=== PATIENT | male | born 1960 | race African-American/Black ===

== ENCOUNTER 2018-09-06 08:52 | Inpatient (IN) | payer MEDICARE, MEDICAID ==
[~2018-09-06 08:52] MED LIST: CEFAZOLIN 1 GM/D5W RTU 1 GM/50 ML RTUPB IV ONE
--- NOTE | 2018-09-06 09:35 | RADIOLOGY REPORT (SQ) ---
EXAM DESCRIPTION: CHEST SINGLE VIEW COMPLETED DATE/TIME: 09/06/2018 9:18 am REASON FOR STUDY: PREOP COMPARISON: AP chest 06/12/2017 EXAM PARAMETERS: NUMBER OF VIEWS: One view. TECHNIQUE: Single frontal radiographic view of the chest acquired. RADIATION DOSE: NA LIMITATIONS: None. FINDINGS: LUNGS AND PLEURA: No opacities, masses or pneumothorax. No pleural effusion. MEDIASTINUM AND HILAR STRUCTURES: No masses. Contour normal. HEART AND VASCULAR STRUCTURES: Heart normal in size. Normal vasculature. BONES: No acute findings. HARDWARE: None in the chest. OTHER: No other significant finding. IMPRESSION: NO ACUTE RADIOGRAPHIC FINDING IN THE CHEST. TECHNICAL DOCUMENTATION: JOB ID: [id number] [employer]- All Rights Reserved Reading location - IP/workstation name: [email or web address]
[2018-09-06 09:38] LABS: HEMATOCRIT 31.4 % (37.9-51.0); HEMOGLOBIN 10.5 g/dL (13.5-17.0); MEAN CORPUSCULAR HEMOGLOBIN 24.6 pg (27.0-33.4); MEAN CORPUSCULAR HGB CONC 33.4 g/dL (32.0-36.0); MEAN CORPUSCULAR VOLUME 74 fl (80-97); PLATELET COUNT 408 10^3/uL (150-450); RED BLOOD COUNT 4.26 10^6/uL (4.35-5.55); WHITE BLOOD COUNT 9.6 10^3/uL (4.0-10.5)
[2018-09-06] MEDS ORDERED: ALBUTEROL SULFATE 0.083% NEB 2.5 MG/3 ML AMPUL NEB ONE (09:42)
[2018-09-06 09:53] LABS: INTERNATIONAL RATION (INR) 1.25; PROTHROMBIN TIME 15.7 SEC (11.4-15.4)
[2018-09-06 09:54] LABS: PARTIAL THROMBOPLASTIN TIME 27.6 SEC (23.5-35.8)
[2018-09-06] MEDS ORDERED: LIDOCAINE 0.5% INJ-PF (5 MG/ML) 50 ML SDV ONE (09:56)
[2018-09-06] MEDS ORDERED: BUPIVACAINE HCL 0.25 % INJ/PF (2.5 MG/1 ML) 30 ML VIAL ONE (09:56)
[2018-09-06] MEDS ORDERED: BACITRACIN INJ 50,000 UNIT VIAL ONE (09:57)
[2018-09-06 09:58] LABS: ANION GAP 10 (5-19); BLOOD UREA NITROGEN 21 mg/dL (7-20); CALCIUM 9.2 mg/dL (8.4-10.2); CARBON DIOXIDE 26 mmol/L (22-30); CHLORIDE 107 mmol/L (98-107); GLUCOSE 86 mg/dL (75-110); POTASSIUM 4.5 mmol/L (3.6-5.0); SODIUM 142.6 mmol/L (137-145)
[2018-09-06] MEDS ORDERED: FENTANYL CITRATE INJ/PF 100 MCG/2 ML AMPUL ONE (10:11)
[2018-09-06] MEDS ORDERED: MIDAZOLAM 2 MG/2 ML INJ ONE (10:12)
[2018-09-06] MEDS ORDERED: PROPOFOL INJ 200 MG/20 ML VIAL IV ONE (10:12)
[2018-09-06] MEDS ORDERED: OXYCODONE-ACETAMINOPHEN 5-325 MG TABLET PO PRN ×2 (11:14)
[2018-09-06] MEDS ORDERED: PROMETHAZINE HCL INJ 25 MG/1 ML VIAL IV PRN ×2 (11:14)
[2018-09-06] MEDS ORDERED: DIPHENHYDRAMINE HCL 50 MG/ML VIAL IV PRN (11:14)
[2018-09-06] MEDS ORDERED: MEPERIDINE HCL/PF INJ 25 MG/1 ML DISP.SYRIN IV PRN (11:14)
[2018-09-06] MEDS ORDERED: FENTANYL CITRATE INJ/PF 100 MCG/2 ML AMPUL IV PRN ×3 (11:14)
--- NOTE | 2018-09-06 14:11 | RADIOLOGY REPORT (SQ) ---
EXAM DESCRIPTION: KNEE RIGHT 2 VIEWS; NO CHG FLUORO COMPLETED DATE/TIME: 09/06/2018 1:46 pm REASON FOR STUDY: FOREIGN BODY / MISSING NEEDLE S/P RT BELOW KNEE AMPUTATION IN OR E11.621 TYPE 2 D IABETES MELLITUS WITH FOOT ULCER COMPARISON: None. FLUOROSCOPY TIME: 0.8 minutes 9 digital radiographic C-arm images saved to PACS. TECHNIQUE: Intra-operative images acquired during surgical procedure to evaluate progress. NUMBER OF IMAGES: 9 digital radiographic C-arm images LIMITATIONS: None. FINDINGS: Fluoroscopic imaging during below the knee amputation. Images demonstrate surgical staple s over the distal right lower leg amputation stump. No retained radiopaque foreign body over the field of view on the fluoroscopic images. There is a pl jose francisco cast over the distal right lower leg. Please see the operative report for further details IMPRESSION: Intra procedural imaging and fluoro COMMENT: Quality ID [id number]: Final reports for procedures using fluoroscopy that document radiation exp osure indices, or exposure time and number of fluorographic images (if radiation exposure indices are not available) Please consult full operative report of the attending physician for description of the procedure. TECHNICAL DOCUMENTATION: JOB ID: [id number] [employer]- All Rights Reserved Reading location - IP/workstation name: [email or web address]
--- NOTE | 2018-09-06 14:11 | RADIOLOGY REPORT (SQ) ---
EXAM DESCRIPTION: KNEE RIGHT 2 VIEWS; NO CHG FLUORO COMPLETED DATE/TIME: 09/06/2018 1:46 pm REASON FOR STUDY: FOREIGN BODY / MISSING NEEDLE S/P RT BELOW KNEE AMPUTATION IN OR E11.621 TYPE 2 D IABETES MELLITUS WITH FOOT ULCER COMPARISON: None. FLUOROSCOPY TIME: 0.8 minutes 9 digital radiographic C-arm images saved to PACS. TECHNIQUE: Intra-operative images acquired during surgical procedure to evaluate progress. NUMBER OF IMAGES: 9 digital radiographic C-arm images LIMITATIONS: None. FINDINGS: Fluoroscopic imaging during below the knee amputation. Images demonstrate surgical staple s over the distal right lower leg amputation stump. No retained radiopaque foreign body over the field of view on the fluoroscopic images. There is a pl jose francisco cast over the distal right lower leg. Please see the operative report for further details IMPRESSION: Intra procedural imaging and fluoro COMMENT: Quality ID [id number]: Final reports for procedures using fluoroscopy that document radiation exp osure indices, or exposure time and number of fluorographic images (if radiation exposure indices are not available) Please consult full operative report of the attending physician for description of the procedure. TECHNICAL DOCUMENTATION: JOB ID: [id number] [employer]- All Rights Reserved Reading location - IP/workstation name: [email or web address]
[2018-09-06] MEDS ORDERED: DEXTROSE 40% GEL 15 GM TUBE PO PRN ×2 (14:30→15:30)
[2018-09-06] MEDS ORDERED: DEXTROSE 40% GEL 15 GM TUBE X 2 PO PRN ×2 (14:30→15:30)
[2018-09-06] MEDS ORDERED: DEXTROSE 50%-WATER SYRINGE 25 GM/50 ML DOSE IV PRN ×2 (14:30→15:30)
[2018-09-06] MEDS ORDERED: GLUCAGON,HUMAN RECOMB 1 MG INJ IM PRN ×2 (14:30→15:30)
[2018-09-06] MEDS ORDERED: DEXTROSE 50%-WATER SYRINGE 12.5 GM/25 ML DOSE IV PRN ×2 (14:30→15:30)
[2018-09-06] MEDS ORDERED: KETOROLAC TROMETHAMINE INJ/PF 30 MG/1 ML SDV ONE (15:07)
[2018-09-06] MEDS ORDERED: 1/2 NORMAL SALINE 1,000 ML IV PRN ×2 (15:26→15:57)
[2018-09-06] MEDS: MORPHINE SULFATE 10 MG/ML INJ IV PRN ×3 (16:05→22:43)
--- NOTE | 2018-09-06 16:12 | Operative Report ---
Operative Report DATE OF SURGERY: 09/06/18 PREOPERATIVE DIAGNOSIS: 1. Necrosis and gangrene in the right foot. 2. None unreconstructable peripheral vascular disease. 3. 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 4. Diabetes mellitus type 2. POSTOPERATIVE DIAGNOSIS: 1. Necrosis and gangrene in the right foot. 2. None unreconstructable peripheral vascular disease. 3. 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 4. Diabetes mellitus type 2. OPERATION: Right below the knee amputation. SURGEON: GUY AREVALO INVESTIGATION OFFICER: None. ANESTHESIA: Spinal TISSUE REMOVED OR ALTERED: Right lower extremity below the knee. COMPLICATIONS: None. ESTIMATED BLOOD LOSS: 500 mils. INTRAOPERATIVE FINDINGS: Of right lower extremity with viable and healthy looking tissues of the level of amputation. Continues considerable subcutaneous edema however. Disease was encountered and the major blood vessels but this did not impact the pink viability of muscle and other tissue. PROCEDURE: The right lower extremity was prepared with chlorhexidine from the upper thigh down to the lower leg it was draped out with sterile linen. After the universal timeout, in which it was verified that the patient continued to get IV antibiotic and it was the right lower extremity that was to be removed, the procedure commenced. A marking pen was used to sketch a relatively short anterior and a long posterior flap. The incision was now made anteriorly from the vicinity of the medial tibia the tibia to the lateral fibula. The uppermost portions of the flap, previously marked were now incised. Dissection proceeded through the investing fascia and the muscular tissues down to the interosseous membrane. The dissection was done with scalpel and with cautery as indicated. Hemostasis was obtained using using cautery were indicated the anterior tibial group of vessels were encountered and doubly clamped divided and suture ligated with 2-0 PDS suture. The periosteum of the tibia was now incised circumferentially and raised a good 3 cm above the level of the skin amputation. The soft tissues were protected with moist laps and a electric saw used to incise the tibia describing an oblique angle superiorly so as to reduce the anterior edge of the tibia and then straight posteriorly. The fibula was now approached similarly. It was decided because of this very muscular man to transect the fibula initially. The periosteum was incised in cised circumferentially and raised using a periosteal elevator. The fibula was transected using a electric saw. This allowed access to the posterior group of muscles which are transected including the soleus. The gastrocnemius muscle was left intact. The peroneal and the posterior tibial group of vessels were encountered sequentially. Each was doubly clamped and divided and suture ligated with 2-0 PDS. The nerves when encountered were anesthetized with dilute lidocaine and bupivacaine. Dissection now proceeded inferiorly and the skin flap was now completed. The specimen was thus entirely removed and submitted for pathology. A good portion of time was not taken in obtaining meticulous hemostasis. This was done using hemostats and sutures of 3-0 and 2-0 PDS. Smaller bleeders were controlled with cautery. Having controlled the bleeding in the posterior flap, the fibula was now further transected after raising the periosteum above the level of the tibia. It is transected with an electric saw. Once again the wound was carefully inspected irrigated, with antibiotic containing solution and careful hemostasis checked for and assured. Having done so the wound was now closed in an osteo-myoplastic fashion. First the periosteum over the tibia was approximated to the investing fascia of the posterior flap. This was done at the tibia and then the fascial approximation continued to the lateral and medial aspects of the incision. This was done with interrupted sutures of 2-0 PDS the skin was now approximated with olivia in a tension-free fashion. Xeroform form was now applied to the wound followed by a VAC. The VAC was now applied to suction. Once this was achieved a posterior plaster splint was now made and protected with at least 8 layers of Webril. It was applied over the stump and to just above the knee and posteriorly quite long. It was held in place with a layer of Kerlix and then a layer of Gato wraps. The splint was further anchored using tape. The procedure was now concluded. Copies dictated operative report to Dr. Guy Atkinson MD.
[2018-09-06] MEDS: INSULIN LISPRO 100 UNIT/ML 3 ML VIAL SUBCUT SCH ×4 (16:56→22:02)
[2018-09-06] MEDS: KETOROLAC TROMETHAMINE 10 MG TABLET PO SCH (20:18)
--- NOTE | 2018-09-06 20:28 | EKG REPORT ---
SEVERITY:- ABNORMAL ECG - SINUS RHYTHM NONSPECIFIC INTRAVENTRICULAR CONDUCTION DELAY : Confirmed by: Florentino Vora 06-Sep-2018 20:27:27
[2018-09-07] MEDS: MORPHINE SULFATE 10 MG/ML INJ IV PRN ×3 (02:52→21:43)
[2018-09-07] MEDS: INSULIN LISPRO 100 UNIT/ML 3 ML VIAL SUBCUT SCH ×6 (07:59→21:38)
[2018-09-07 08:09] LABS: HEMATOCRIT 26.4 % (37.9-51.0); HEMOGLOBIN 8.6 g/dL (13.5-17.0); MEAN CORPUSCULAR HEMOGLOBIN 24.4 pg (27.0-33.4); MEAN CORPUSCULAR HGB CONC 32.7 g/dL (32.0-36.0); MEAN CORPUSCULAR VOLUME 75 fl (80-97); PLATELET COUNT 401 10^3/uL (150-450); RED BLOOD COUNT 3.54 10^6/uL (4.35-5.55); RED CELL DISTRIBUTION WIDTH 15.9 % (11.5-14.0); WHITE BLOOD COUNT 9.9 10^3/uL (4.0-10.5)
[2018-09-07 08:46] LABS: ANION GAP 8 (5-19); BLOOD UREA NITROGEN 17 mg/dL (7-20); CALCIUM 8.6 mg/dL (8.4-10.2); CARBON DIOXIDE 25 mmol/L (22-30); CHLORIDE 106 mmol/L (98-107); GLUCOSE 110 mg/dL (75-110); POTASSIUM 4.5 mmol/L (3.6-5.0); SODIUM 139.2 mmol/L (137-145)
[2018-09-07] MEDS: KETOROLAC TROMETHAMINE 10 MG TABLET PO SCH ×3 (09:26→18:42)
[2018-09-07] MEDS: ENOXAPARIN SODIUM INJ 30 MG/0.3 ML DISP.SYRIN SUBCUT SCH (09:27)
[2018-09-08] MEDS: INSULIN LISPRO 100 UNIT/ML 3 ML VIAL SUBCUT SCH ×4 (10:52→21:28)
[2018-09-08] MEDS: ENOXAPARIN SODIUM INJ 30 MG/0.3 ML DISP.SYRIN SUBCUT SCH (11:16)
[2018-09-08] MEDS: KETOROLAC TROMETHAMINE 10 MG TABLET PO SCH ×3 (11:16→17:44)
[2018-09-08] MEDS: MORPHINE SULFATE 10 MG/ML INJ IV PRN ×2 (11:18→17:31)
--- NOTE | 2018-09-08 13:16 | PDOC PROGRESS REPORT ---
Subjective Progress Note for:: 09/07/18 Subjective:: Postop evaluation. Reason For Visit: E11.621 TYPE 2 DIABETES MELLITUS WITH FOOT ULCER Postop evaluation. Physical Exam Vital Signs: Temp Pulse Resp BP Pulse Ox 99.3 F 91 22 H 189/75 H 97 09/08/18 11:00 09/08/18 11:00 09/08/18 11:00 09/08/18 11:00 09/08/18 11:00 Intake & Output 09/07/18 09/08/18 09/09/18 06:59 06:59 06:59 Intake Total 1025 1400 Output Total 1525 1450 Balance -500 -50 Weight 97 kg 96.2 kg Additional comments: Constitutional: Well-developed well-nourished -[place] gentleman. No apparent acute distress. Eyes: Mucous membranes pink and moist, pupils equal and reactive to light. Conjunctiva normal. Cornea normal. Respiratory: Normal respiratory effort. Psychiatric: Judgment, memory, insight seem normal. Mood is pleasant and appropriate. Because of a aphasia it is difficult to communicate with the patient but he seems well oriented. Extremities: Upper extremities show normal range of movement on the right, paresis on the left. Pulses present noted to the radial arteries. Capillary refill normal. No cyanosis noted. No muscle wasting noted. Lower extremities show fresh right below-knee amputation in a cast. In the left lower extremity there is a well-healed partial foot amputation. There is paresis from a previous right cerebrovascular accident Results Laboratory Results: 09/07/18 07:20 09/07/18 07:20 Impressions: Chest X-Ray 09/06/18 00:00 IMPRESSION: NO ACUTE RADIOGRAPHIC FINDING IN THE CHEST. Fluoroscopy 09/06/18 00:00 IMPRESSION: Intra procedural imaging and fluoro Knee X-Ray 09/06/18 00:00 IMPRESSION: Intra procedural imaging and fluoro Assessment & Plan - Plan Summary Plan Summary: In this patient after right below-knee amputation with multiple comorbidities continued hospitalization for another few days. The hope is to change the dressing in 24 to 48 hours and to [facility] Physical therapy has been ordered as he will need training and transfer. Overall the patient seems to be doing well and is not exhibiting much discomfort. Additional considerations are the large amount of edema in the lower extremities at surgery. This is somewhat worrisome in terms of healing. Also some diminishment in vascularity. All things considered he seems to be making good progress.
[2018-09-08] MEDS: ATORVASTATIN CALCIUM 80 MG TABLET PO SCH (21:27)
[2018-09-08] MEDS: CARVEDILOL 12.5 MG TABLET PO SCH (21:27)
[2018-09-08] MEDS ORDERED: INSULIN GLARGINE,HUM.REC.ANLOG 1,000 UNIT/10 ML VIAL SUBCUT SCH (22:00)
[2018-09-08] MEDS ORDERED: (PENDING PHARMACY ID) (Carvedilol [Coreg 25 Mg Tablet] 1 TAB) PO SCH (22:00)
--- NOTE | 2018-09-09 07:45 | PDOC PROGRESS REPORT ---
Subjective Progress Note for:: 09/09/18 Subjective:: No complaints from the patient. He appears to be comfortable with well- controlled pain. Reason For Visit: E11.621 TYPE 2 DIABETES MELLITUS WITH FOOT ULCER Daily visit. Physical Exam Vital Signs: Temp Pulse Resp BP Pulse Ox 98.3 F 71 15 144/71 H 99 09/08/18 23:00 09/08/18 23:00 09/08/18 23:00 09/08/18 23:00 09/08/18 23:00 Intake & Output 09/08/18 09/09/18 09/10/18 06:59 06:59 06:59 Intake Total 1400 1252 Output Total 1450 600 Balance -50 652 Weight 96.2 kg 96.5 kg Additional comments: Constitutional: Well-developed well-nourished -[place] gentleman. No apparent acute distress. Eyes: Mucous membranes pink and moist, pupils equal and reactive to light. Conjunctiva normal. Cornea normal. ENT: Hearing grossly normal. External pinna normal to inspection. Teeth intact. Tongue normal to inspection. Respiratory: Normal respiratory effort. Psychiatric: Challenging to assess due to communication barrier second to the patient's chronic APs. Judgment, memory, insight seem normal. Mood is pleasant and appropriate. Extremities: Upper extremities show normal range of movement on the right, paresis on the left. Pulses present noted to the radial arteries. Capillary refill normal. No cyanosis noted. No muscle wasting noted. Lower extremities show right lower extremity below-knee amputation in posterior splint. Results Laboratory Results: 09/07/18 07:20 09/07/18 07:20 Impressions: Chest X-Ray 09/06/18 00:00 IMPRESSION: NO ACUTE RADIOGRAPHIC FINDING IN THE CHEST. 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 Maintained in dressing and cast currently. (2) Diabetes mellitus type 2 with complications Is this a current diagnosis for this admission?: Yes (3) Hypertension Is this a current diagnosis for this admission?: Yes (4) Expressive aphasia Is this a current diagnosis for this admission?: Yes - Plan Summary Plan Summary: In this complex patient with right below-knee amputation subjective complication, continued inpatient care is warranted. Today his Rasmussen catheter is to be removed and substituted with a condom catheter . Pain medications to be adjusted as needed. The patient continues occupational and physical therapy. Dressing change planned for today or the next 4 hours. Discharge planning for Wednesday by which time all the above factors, which would result in readmission, should be resolved.
[2018-09-09] MEDS: INSULIN LISPRO 100 UNIT/ML 3 ML VIAL SUBCUT SCH ×4 (10:46→21:39)
[2018-09-09] MEDS: KETOROLAC TROMETHAMINE 10 MG TABLET PO SCH ×2 (10:52→15:49)
[2018-09-09] MEDS: ASPIRIN 325 MG TABLET PO SCH (10:52)
[2018-09-09] MEDS: FUROSEMIDE 20 MG TABLET PO SCH (10:52)
[2018-09-09] MEDS: METFORMIN HCL 500 MG TABLET PO SCH ×2 (10:52→17:42)
[2018-09-09] MEDS: AMLODIPINE BESYLATE 10 MG TABLET PO SCH (10:52)
[2018-09-09] MEDS: ENOXAPARIN SODIUM INJ 30 MG/0.3 ML DISP.SYRIN SUBCUT SCH (10:53)
[2018-09-09] MEDS: CARVEDILOL 12.5 MG TABLET PO SCH ×2 (10:53→21:38)
[2018-09-09] MEDS: SERTRALINE HCL 50 MG TABLET PO SCH (10:53)
[2018-09-09] MEDS: LISINOPRIL 10 MG TABLET PO SCH (10:53)
[2018-09-09] MEDS: QUETIAPINE FUMARATE 25 MG TABLET PO SCH (10:54)
[2018-09-09] MEDS: INSULIN GLARGINE,HUM.REC.ANLOG 1,000 UNIT/10 ML VIAL SUBCUT SCH (21:38)
[2018-09-09] MEDS: ATORVASTATIN CALCIUM 80 MG TABLET PO SCH (21:39)
[2018-09-10] MEDS: INSULIN LISPRO 100 UNIT/ML 3 ML VIAL SUBCUT SCH ×4 (07:35→22:15)
[2018-09-10] MEDS: FUROSEMIDE 20 MG TABLET PO SCH (07:52)
[2018-09-10] MEDS: LISINOPRIL 10 MG TABLET PO SCH (10:42)
[2018-09-10] MEDS: ENOXAPARIN SODIUM INJ 30 MG/0.3 ML DISP.SYRIN SUBCUT SCH (10:42)
[2018-09-10] MEDS: ASPIRIN 325 MG TABLET PO SCH (10:42)
[2018-09-10] MEDS: CARVEDILOL 12.5 MG TABLET PO SCH ×2 (10:43→22:16)
[2018-09-10] MEDS: AMLODIPINE BESYLATE 10 MG TABLET PO SCH (10:43)
[2018-09-10] MEDS: SERTRALINE HCL 50 MG TABLET PO SCH (10:43)
[2018-09-10] MEDS: METFORMIN HCL 500 MG TABLET PO SCH ×2 (10:43→17:20)
[2018-09-10] MEDS: QUETIAPINE FUMARATE 25 MG TABLET PO SCH (10:50)
--- NOTE | 2018-09-10 18:37 | PDOC PROGRESS REPORT ---
Subjective Progress Note for:: 09/10/18 Subjective:: No complaints. Reason For Visit: E11.621 TYPE 2 DIABETES MELLITUS WITH FOOT ULCER Daily postop evaluation. Physical Exam Vital Signs: Temp Pulse Resp BP Pulse Ox 97.9 F 86 16 153/77 H 97 09/10/18 11:56 09/10/18 11:56 09/10/18 11:56 09/10/18 11:56 09/10/18 11:56 Intake & Output 09/09/18 09/10/18 09/11/18 06:59 06:59 06:59 Intake Total 1252 598 Output Total 600 700 Balance 652 -700 598 Weight 96.5 kg 95.9 kg Additional comments: Constitutional: Well-developed well-nourished -[place] gentleman. No apparent acute distress. Eyes: Mucous membranes pink and moist, pupils equal and reactive to light. Conjunctiva normal. Cornea normal. ENT: Hearing grossly normal. External pinna normal to inspection. Teeth intact. Tongue normal to inspection. Respiratory: Normal respiratory effort. Psychiatric: Judgment, memory, insight seem normal. Mood is pleasant and appropriate. Extremities: Upper extremities show left-sided weakness residual of old stroke. Lower extremities show reduced range of movement on the left due to paresis from stroke, on the right in a posterior splint. Dressings are intact and clean. Results Laboratory Results: 09/07/18 07:20 09/07/18 07:20 Impressions: Chest X-Ray 09/06/18 00:00 IMPRESSION: NO ACUTE RADIOGRAPHIC FINDING IN THE CHEST. 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 Anemia is noted down to 8.6, asymptomatic. I will start the patient on ferrous sulfate and Colace. I plan to take down the dressings tomorrow and prepare him for discharge, potentially on Wednesday.
[2018-09-10] MEDS: INSULIN GLARGINE,HUM.REC.ANLOG 1,000 UNIT/10 ML VIAL SUBCUT SCH (22:15)
[2018-09-10] MEDS: ATORVASTATIN CALCIUM 80 MG TABLET PO SCH (22:16)
[2018-09-10] MEDS: DOCUSATE SODIUM 100 MG CAPSULE PO SCH (22:16)
[2018-09-11] MEDS: OXYCODONE-ACETAMINOPHEN 5-325 MG TABLET PO PRN ×2 (00:52→13:43)
[2018-09-11] MEDS: INSULIN LISPRO 100 UNIT/ML 3 ML VIAL SUBCUT SCH ×4 (08:07→22:03)
[2018-09-11] MEDS: FUROSEMIDE 20 MG TABLET PO SCH (08:08)
[2018-09-11] MEDS: AMLODIPINE BESYLATE 10 MG TABLET PO SCH (10:59)
[2018-09-11] MEDS: SERTRALINE HCL 50 MG TABLET PO SCH (10:59)
[2018-09-11] MEDS: QUETIAPINE FUMARATE 25 MG TABLET PO SCH (11:00)
[2018-09-11] MEDS: FERROUS SULFATE 325 MG TABLET PO SCH (11:00)
[2018-09-11] MEDS: ENOXAPARIN SODIUM INJ 30 MG/0.3 ML DISP.SYRIN SUBCUT SCH (11:00)
[2018-09-11] MEDS: LISINOPRIL 10 MG TABLET PO SCH (11:00)
[2018-09-11] MEDS: ASPIRIN 325 MG TABLET PO SCH (11:00)
[2018-09-11] MEDS: METFORMIN HCL 500 MG TABLET PO SCH ×2 (11:00→18:00)
[2018-09-11] MEDS: CARVEDILOL 12.5 MG TABLET PO SCH ×2 (11:00→22:03)
[2018-09-11] MEDS: DOCUSATE SODIUM 100 MG CAPSULE PO SCH ×2 (11:00→22:01)
--- NOTE | 2018-09-11 13:41 | PDOC PROGRESS REPORT ---
Subjective Progress Note for:: 09/11/18 Subjective:: The patient seems to be doing well, no complaints. Reason For Visit: E11.621 TYPE 2 DIABETES MELLITUS WITH FOOT ULCER Daily postsurgical care. Physical Exam Vital Signs: Temp Pulse Resp BP Pulse Ox 98.4 F 78 18 151/94 H 97 09/11/18 07:50 09/11/18 07:50 09/11/18 07:50 09/11/18 07:50 09/11/18 07:50 Intake & Output 09/10/18 09/11/18 09/12/18 06:59 06:59 06:59 Intake Total 598 Output Total 700 300 Balance -700 298 Weight 95.9 kg 93.4 kg Additional comments: Constitutional: Well-developed well-nourished -[place] gentleman. No apparent acute distress. ENT: Hearing grossly normal. External pinna normal to inspection. Teeth intact. Tongue normal to inspection. Respiratory: Normal respiratory effort. Psychiatric: Judgment, memory, insight seem normal. Mood is pleasant and approp riate. Extremities: Upper extremities show normal range of movement. Pulses present noted to the radial arteries. Capillary refill normal. No cyanosis noted. No muscle wasting noted. Lower extremities shows right below-knee amputation. Dressings taken down. All looks well. The wound is nicely covered with Acticoat, no excessive drainage. Tissues look viable. Results Laboratory Results: 09/07/18 07:20 09/07/18 07:20 Impressions: Chest X-Ray 09/06/18 00:00 IMPRESSION: NO ACUTE RADIOGRAPHIC FINDING IN THE CHEST. Fluoroscopy 09/06/18 00:00 IMPRESSION: Intra procedural imaging and fluoro Knee X-Ray 09/06/18 00:00 IMPRESSION: Intra procedural imaging and fluoro Assessment & Plan - Diagnosis (1) Right foot ulcer Qualifiers: Non-pressure ulcer stage: with necrosis of muscle Qualified Code(s): L97.513 - Non-pressure chronic ulcer of other part of right foot with necrosis of muscle Is this a current diagnosis for this admission?: Yes (2) Diabetes mellitus type 2 with complications Is this a current diagnosis for this admission?: Yes (3) Hypertension Is this a current diagnosis for this admission?: Yes (4) Expressive aphasia Is this a current diagnosis for this admission?: Yes - Plan Summary Plan Summary: This patient is progressing satisfactorily the. Discharge planning in progress for him to go back to the long[facility]term tomorrow. Pains are to remain the same. Dressing change to be every 2 to 3 days, maintaining posterior splint.
[2018-09-11] MEDS: ATORVASTATIN CALCIUM 80 MG TABLET PO SCH (22:04)
[2018-09-11] MEDS: INSULIN GLARGINE,HUM.REC.ANLOG 1,000 UNIT/10 ML VIAL SUBCUT SCH (22:05)
[2018-09-12] MEDS: OXYCODONE-ACETAMINOPHEN 5-325 MG TABLET PO PRN (00:16)
[2018-09-12] MEDS: INSULIN LISPRO 100 UNIT/ML 3 ML VIAL SUBCUT SCH ×2 (09:37→11:39)
[2018-09-12] MEDS: FUROSEMIDE 20 MG TABLET PO SCH (09:41)
[2018-09-12] MEDS: ASPIRIN 325 MG TABLET PO SCH (09:53)
[2018-09-12] MEDS: QUETIAPINE FUMARATE 25 MG TABLET PO SCH (09:53)
[2018-09-12] MEDS: LISINOPRIL 10 MG TABLET PO SCH (09:54)
[2018-09-12] MEDS: CARVEDILOL 12.5 MG TABLET PO SCH (09:54)
[2018-09-12] MEDS: METFORMIN HCL 500 MG TABLET PO SCH (09:55)
[2018-09-12] MEDS: AMLODIPINE BESYLATE 10 MG TABLET PO SCH (09:55)
[2018-09-12] MEDS: DOCUSATE SODIUM 100 MG CAPSULE PO SCH (09:56)
[2018-09-12] MEDS: FERROUS SULFATE 325 MG TABLET PO SCH (09:56)
[2018-09-12] MEDS: ENOXAPARIN SODIUM INJ 30 MG/0.3 ML DISP.SYRIN SUBCUT SCH (09:58)
[2018-09-12] MEDS: SERTRALINE HCL 50 MG TABLET PO SCH (10:42)
--- NOTE | 2018-09-12 11:47 | PDOC DISCHARGE SUMMARY ---
General - Admit/Disc Date/PCP Admission Date/Primary Care Provider: 09/06/18 08:52 BEBO MATTHEWS Discharge Date: 09/12/18 - Discharge Diagnosis (1) Right foot ulcer Is this a current diagnosis for this admission?: Yes (2) Diabetes mellitus type 2 with complications Is this a current diagnosis for this admission?: Yes (3) Hypertension Is this a current diagnosis for this admission?: Yes (4) Expressive aphasia Is this a current diagnosis for this admission?: Yes - Additional Information Home Medications: Furosemide [Lasix 20 mg Tablet] 20 mg PO QAM 06/13/17 Aspirin [Aspirin 325 mg Tablet] 325 mg PO DAILY tablet 06/21/17 Atorvastatin Calcium [Lipitor 80 mg Tablet] 80 mg PO QHS tablet 06/21/17 Amlodipine Besylate [Norvasc 10 mg Tablet] 10 mg PO DAILY 09/06/18 Carvedilol [Coreg 25 mg Tablet] 1 tab PO Q12 09/06/18 Glucagon,Human Recombinant [Glucagen Inj 1 Mg Vial] 1 mg SUBCUT ASDIR PRN 09/06/18 Insulin Glargine,Hum.rec.anlog [Lantus Insulin 100 Unit/mL Insulin Pen] 35 unit SUBCUT QHS 09/06/18 Insulin Lispro [Humalog Insulin (Lispro) 100 unit/mL] 0 unit SUBCUT .SLIDING SCALE PRN 09/06/18 Lisinopril [Prinivil 40 mg Tablet] 40 mg PO DAILY 09/06/18 Metformin HCl 500 mg PO BID 09/06/18 Quetiapine Fumarate [Seroquel] 1 tab PO DAILY 09/06/18 Sertraline HCl [Zoloft 50 mg Tablet] 50 mg PO DAILY 09/06/18 History of Present Illness Patient complains of: Patient was admitted with necrosis in the right foot. History of Present Illness: ZANIAB MUÑOZ is a 57 year old male The patient was admitted with necrosis of the right foot. This is on the bed of non-reconstructable peripheral vascular disease, diabetes mellitus, hypertension, prior stroke with left hemiparesis. A trial of conservative therapy over the last few months had failed and there fore the patient was admitted for right below-knee possible above-knee amputation. This was done on admission. He was kept in hospital for optimization. This is based on the below-knee amputation with edema and known peripheral arterial disease. Also with diabetes and multiple issues requiring inpatient monitoring. At this point the dressings were taken down on 11 September and the wound site seems satisfactory. The patient has achieved maximal in hospital benefit and will be discharged. Follow-up instructions and discharge instructions are written in the chart. Chiefly the patient is to continue his normal medications, diet and routine. Occupational Therapy and physical therapy is encouraged. Follow-up on Wednesday of this week in office. Additional medications will include Percocet and also ferrous sulfate with Colace. Physical Exam Vital Signs: Temp Pulse Resp BP Pulse Ox 98.2 F 72 22 H 181/61 H 94 09/12/18 00:02 09/12/18 00:02 09/12/18 00:02 09/12/18 00:02 09/12/18 00:02 Intake & Output 09/11/18 09/12/18 09/13/18 06:59 06:59 06:59 Intake Total 598 850 Output Total 300 100 Balance 298 750 Weight 93.4 kg 94.5 kg Additional comments: Constitutional: Well-developed well-nourished -[place] gentleman. No apparent acute distress. Eyes: Mucous membranes pink and moist, pupils equal and reactive to light. Conjunctiva normal. Cornea normal. ENT: Hearing grossly normal. External pinna normal to inspection. Teeth intact. Tongue normal to inspection. Respiratory: Normal respiratory effort. Psychiatric: Judgment, memory, insight seem normal. Mood is pleasant and appropriate. Lower extremities: Right below-knee amputation in a posterior splint. Wound site evaluated and found to be fine. Hematology/lymph: Groin, neck, axillary nodes normal. Old left-sided hemiparesis appreciated. Results Laboratory Results: 09/07/18 07:20 09/07/18 07:20 Impressions: Chest X-Ray 09/06/18 00:00 IMPRESSION: NO ACUTE RADIOGRAPHIC FINDING IN THE CHEST. Fluoroscopy 09/06/18 00:00 IMPRESSION: Intra procedural imaging and fluoro Knee X-Ray 09/06/18 00:00 IMPRESSION: Intra procedural imaging and fluoro Qualifiers - * PATIENT BEING DISCHARGED WITH ANY OF THE FOLLOWING DIAGNOSIS: Stroke VTE patient discharged on overlapping Therapy?: No Reason(s) for not prescribing Overlap Therapy:: Not indicated Stroke Pt being discharged on Anti-thrombolytic therapy?: No Reason(s) for not prescribing Anti-thrombolytic therapy:: Procedure not indicated Stroke Pt being discharged on Anti-coagulation therapy?: No Reason(s) for not prescribing Anti-coagulation therapy:: Procedure not indicated Stroke Pt being discharged on Statins?: No Reason(s) for not prescribing Statins therapy:: Procedure not indicated PA Pt being discharged on Aspirin therapy?: Yes Reason(s) for not prescribing Aspirin therapy:: Procedure not indicated PA Pt being discharged on Statins?: No Reason(s) for not prescribing Statin therapy:: Procedure not indicated PA Pt discharged ACEI/ARBS?: No Acute Heart Failure - Is this a Heart Failure Patient?: No Documentation of LVEF assessment?: No, Document reason 3. Anticoagulant therapy for permanect/persistent/paraoxysmal Afib or Aflutter: N/A Reason(s) not discharged on anticoagulant therapy for permanect/persistent/paraoxysmal Afib or Aflutter: Repeated falls/unsteady gait Follow-up Appointment scheduled within 7 days?: Yes Plan Discharge Plan: The patient is to be discharged back to his nursing facility. His diet, medications, activities are to be as before. Follow-up to be clinic with Dr. Atkinson about appointment on Wednesday of this week. His prescriptions are to be identical to prior to admission. In addition he is given a prescription for Percocet as needed for pain and also for ferrous sulfate and Colace respectively drop in hemoglobin consequent on the amputation.
[2018-09-12 14:53] VITALS: BP 114/46
== END 2018-09-12 16:40 | DRG 240 ==
LOC: INOR 08:52 → 4S 14:51
PROVIDERS: ADMIT Surgery; ATTEND Surgery
PROC: 0Y6J0Z2 Detachment at Left Lower Leg, Mid, Open Approach (ICD-10-PCS; principal; 2018-09-06 11:30)
DX: E11.52 Type 2 diabetes mellitus with diabetic peripheral angiopathy with gangrene (principal); I96 Gangrene, not elsewhere classified; L97.413 Non-pressure chronic ulcer of right heel and midfoot with necrosis of muscle; I69.354 Hemiplegia and hemiparesis following cerebral infarction affecting left non-dominant side; E11.621 Type 2 diabetes mellitus with foot ulcer; I11.0 Hypertensive heart disease with heart failure; I50.9 Heart failure, unspecified; F17.200 Nicotine dependence, unspecified, uncomplicated; Z79.4 Long term (current) use of insulin; Z79.82 Long term (current) use of aspirin; Z79.899 Other long term (current) drug therapy
CPT/HCPCS: 01482; 36415; 71045; 80048; 82962; 85027; 85610; 85730; 88305; 88311; 93005; 93010; J0690; J1650; J1815; J1885; J2250; J2270; J2704; J3010; J3490